=== PATIENT | female | born 1980 | race Caucasian/White ===

== ENCOUNTER → 2017-06-26 | Outpatient (CLI) | payer OTHER ==
[2017-06-26 19:08] LABS: ALT 33 U/L (9-52); AST 22 U/L (14-36); Alkaline Phosphatase 74 U/L (38-126); Amylase 41 U/L (30-110); Anion Gap 12 mmol/L; Blood Urea Nitrogen 10 mg/dL (7-17); Calcium 9.6 mg/dL (8.4-10.2); Carbon Dioxide 20 mmol/L (22-30); Chloride 108 mmol/L (98-107); Glucose 101 mg/dL (74-99); Non-African American GFR(MDRD) >60 (>60 ml/min/1.73 sqM); Potassium 4.5 mmol/L (3.5-5.1); Sodium 140 mmol/L (137-145); Total Bilirubin 0.4 mg/dL (0.2-1.3); Total Protein 7.8 g/dL (6.3-8.2)
[2017-06-26 19:09] LABS: Basophils # (A) 0.1 k/uL (0-0.2); Basophils % (A) 1 %; CH 31.3; Eosinophils # (A) 0.1 k/uL (0-0.7); Eosinophils % (A) 2 %; HCT 47.1 % (34.0-46.0); HDW 2.14; HGB 15.2 gm/dL (11.4-16.0); Luc % (Auto) 3; Lymphocytes # (A) 2.1 k/uL (1.0-4.8); Lymphocytes % (A) 26 %; MCH 31.6 pg (25.0-35.0); MCHC 32.2 g/dL (31.0-37.0); MCV 98.2 fL (80.0-100.0); Mean Platelet Volume 8.2; Monocytes # (A) 0.5 k/uL (0-1.0); Monocytes % (A) 6 %; Neutrophils # (A) 5.1 k/uL (1.3-7.7); Neutrophils % (A) 63 %; RDW 12.5 % (11.5-15.5); WBC 8.1 k/uL (3.8-10.6); WBC (Perox) 8.44
== END | disposition home or self-care (01) ==
LOC: MMGSC 13:41
PROVIDERS: ATTEND Family Medicine
DX: N39.0 Urinary tract infection, site not specified (principal); R10.9 Unspecified abdominal pain; R19.4 Change in bowel habit
CPT/HCPCS: 36415; 80053; 82150; 83690; 84439; 84443; 85025; 87086

== ENCOUNTER 2017-12-10 10:39 | Day surgery (SDC) | payer MEDICAID, OTHER ==
[2017-12-09 09:34] VITALS: BMI 28.3
[~2017-12-10 10:39] MED LIST: LACTATED RINGERS 1,000 ML IV SCH
[2017-12-10 11:51] VITALS: TEMP 96.9
[2017-12-10] MEDS ORDERED: LIDOCAINE 1% 20 ML VIAL (10MG/ML) FOR IV START INTRADERMA ONE (11:51)
[2017-12-10] MEDS ORDERED: LIDOCAINE 1% INJ 10MG/ML (20 ML MDV) ONE (12:09)
[2017-12-10] MEDS ORDERED: PROPOFOL 10 MG/ML 20 ML VIAL IV ONE (12:09)
--- NOTE | 2017-12-10 12:27 | P.PCN ---
Date of Procedure: 12/10/17 Procedure(s) Performed: BRIEF HISTORY: Patient is a 36-year-old pleasant white female, scheduled for an elective colonoscopy as a part of evaluation of left lower quadrant abdominal pain and change in bowel habits with alternating diarrhea and constipation of several months duration. PROCEDURE PERFORMED: Colonoscopy. PREOPERATIVE DIAGNOSIS: Left lower quadrant abdominal pain and change in bowel habits. IV sedation per Anesthesia. PROCEDURE: After informed consent was obtained, the patient, was brought into the endoscopy unit. IV sedation was administered by Anesthesia under continuous monitoring. Digital rectal examination was normal. Initially the Olympus CF- 160 flexible video colonoscope was then inserted in the rectum, gradually advanced into the cecum without any difficulty. Careful examination was performed as the scope was gradually being withdrawn. Ileocecal valve and the appendiceal orifice were visualized and appeared normal. Prep was excellent. Mucosa of the cecum, ascending colon, transverse colon, descending colon, sigmoid colon, and rectum appeared normal. Retroflexion was performed in the rectum and no lesions were seen. The patient tolerated the procedure well. IMPRESSION: Normal-appearing colon from rectum to cecum with no evidence of colitis or colorectal neoplasia. RECOMMENDATIONS: Findings of this examination were discussed with the patient as well as a family. She was advised to be on a high-fiber diet, take fiber supplements and use antispasmodics as needed.
[2017-12-10 12:31] VITALS: BP 112/68
[2017-12-10 12:49] VITALS: PULSE 69; RESP 18
== END 2017-12-10 13:06 | disposition home or self-care (01) ==
LOC: ORWHC2ENDO 10:39
PROVIDERS: ATTEND Internal Medicine Gastroenterology
DX: R19.4 Change in bowel habit (principal); R10.32 Left lower quadrant pain; F17.210 Nicotine dependence, cigarettes, uncomplicated
CPT/HCPCS: 81025; 45378; J2001; J2704

== ENCOUNTER → 2025-02-01 | Outpatient (CLI) | payer OTHER ==
[2025-02-01 14:47] LABS: HCT 45.9 % (37.2-46.3); MCH 30.9 pg (27.0-32.0); MCHC 32.7 g/dL (32.0-37.0); MCV 94.4 FL (80.0-97.0); Mean Platelet Volume 10.3 FL (9.5-12.2); NRBC Per 100 WBC 0 X 10*3/uL (0.00-0.01); Platelet Count 381 X 10*3/uL (140-440); RBC 4.86 X 10*6/uL (4.10-5.20); RDW 12.2 % (11.5-14.5); WBC 7.74 X 10*3/uL (4.50-10.00)
[2025-02-01 15:20] LABS: Blood Urea Nitrogen 10.4 mg/dL (9.0-27.0); Carbon Dioxide 24.3 mmol/L (21.6-31.8); Chloride 103 mmol/L (96-109); Potassium 4.4 mmol/L (3.5-5.5); Sodium 139 mmol/L (135-145)
== END | disposition home or self-care (01) ==
LOC: LABPAT 10:44
PROVIDERS: ATTEND Internal Medicine Clinical Cardiac Electrophysiology
DX: Z01.812 Encounter for preprocedural laboratory examination (principal); I47.10 Supraventricular tachycardia, unspecified
CPT/HCPCS: 80051; 82565; 84520; 85027

== ENCOUNTER 2025-02-07 12:11 | Day surgery (SDC) | payer BC, OTHER ==
[2025-02-03 10:13] VITALS: BMI 30.1
[2025-02-07] MEDS: IV FLUID CONTINUATION 1,000 ML IV ONE (13:00)
[2025-02-07 13:24] LABS: African American GFR (CKD) >90 (>60 ml/min/1.73 sqM); Anion Gap 11 mmol/L; Blood Urea Nitrogen 12 mg/dL (7-17); Calcium 9.7 mg/dL (8.4-10.2); Carbon Dioxide 23 mmol/L (22-30); Chloride 105 mmol/L (98-107); Glucose 98 mg/dL (74-99); Non-African American GFR(CKD) >90 (>60 ml/min/1.73 sqM); Potassium 4.2 mmol/L (3.5-5.1); Sodium 139 mmol/L (137-145)
[2025-02-07] MEDS ORDERED: ISOPROTERENOL 250 MCG/1.25 ML SYR IV ONE (14:57)
[2025-02-07] MEDS ORDERED: fentaNYL (PF) 50 MCG/ML 2 ML AMP ONE (14:57)
[2025-02-07] MEDS ORDERED: MIDAZOLAM 2 MG/2 ML VIAL ONE (14:57)
[2025-02-07] MEDS ORDERED: PROPOFOL 10 MG/ML 20 ML VIAL IV ONE (14:57)
[2025-02-07] MEDS: LIDOCAINE 1% INJ 10MG/ML (20 ML MDV) SQ ONE (15:46)
--- NOTE | 2025-02-07 16:32 | P.EPPROC ---
- EP Procedure Note Electrophysiology Procedure Note: This is Dr. Douglas dictating an H/P on this patient The patient was interviewed and examined IMPRESSION / ASSESSMENT: Recurrent palpitations Documented SVT 200 beats minute Prolonged FL interval at baseline PLAN: Diagnostic EP study and possible SVT ablation HPI Patient has recurrent SVT greater than 200 bpm No recent syncope but she continues to have palpitations last week ROS: No fever chills or rigors, no cough, phlegm or expectoration, no nausea, vomiting or diarrhea, no hematuria, dysuria, no musculoskeletal complaints, no strokes or seizures, no skin lesions. EXAMINATION: 136/82 mmHg pulse rate in the 80s afebrile Breath sounds are clear no rhonchi no crackles Heart sounds S1-S2 normal no murmur gallop or rub Extremities warm no edema REVIEW OF LABS, ECG & MEDICAL DATA Sodium 139, potassium 4.2 BUN 12 and creatinine 0.67 TSH normal
[2025-02-07] MEDS: ROPIVACAINE 5 MG/ML 30 ML VIAL MISCELLANE ONE (17:37)
--- NOTE | 2025-02-07 17:47 | P.HPCAR ---
History of Present Illness This is Dr. Douglas dictating an H/P on this patient The patient was interviewed and examined IMPRESSION / ASSESSMENT: Recurrent palpitations Documented SVT 200 beats minute Prolonged NM interval at baseline PLAN: Diagnostic EP study and possible SVT ablation HPI Patient has recurrent SVT greater than 200 bpm No recent syncope but she continues to have palpitations last week ROS: No fever chills or rigors, no cough, phlegm or expectoration, no nausea, vomiting or diarrhea, no hematuria, dysuria, no musculoskeletal complaints, no strokes or seizures, no skin lesions. EXAMINATION: 136/82 mmHg pulse rate in the 80s afebrile Breath sounds are clear no rhonchi no crackles Heart sounds S1-S2 normal no murmur gallop or rub Extremities warm no edema REVIEW OF LABS, ECG & MEDICAL DATA Sodium 139, potassium 4.2 BUN 12 and creatinine 0.67 TSH normal Physical Exam Vitals: Vital Signs Temp Pulse Resp BP Pulse Ox 02/07/25 12:59 97.7 F 81 18 136/82 98 Intake and Output 02/07/25 02/07/25 02/07/25 06:59 14:59 22:59 Intake Total 520 Balance 520 Intake: IV 520 Other: Weight 79.8 kg Past Medical History Past Medical History: Hypertension Additional Past Medical History / Comment(s): SVT, IBS, PCOS History of Any Multi-Drug Resistant Organisms: None Reported Past Surgical History: Section, Cholecystectomy Additional Past Surgical History / Comment(s): [place] teeth Past Anesthesia/Blood Transfusion Reactions: No Reported Reaction Smoking Status: Current every day smoker - Past Family History Mother Family Medical History: No Reported History Physical Examination Vital Signs Temp Pulse Resp BP Pulse Ox 02/07/25 12:59 97.7 F 81 18 136/82 98 Intake and Output 02/07/25 02/07/25 02/07/25 06:59 14:59 22:59 Intake Total 520 Balance 520 Intake: IV 520 Other: Weight 79.8 kg Results 02/07/25 12:45 Comprehensive Metabolic Panel 02/07/25 Range/Units 12:45 Sodium 139 (137-145) mmol/L Potassium 4.2 (3.5-5.1) mmol/L Chloride 105 (98-107) mmol/L Carbon Dioxide 23 (22-30) mmol/L BUN 12 (7-17) mg/dL Creatinine 0.67 (0.52-1.04) mg/dL Glucose 98 (74-99) mg/dL Calcium 9.7 (8.4-10.2) mg/dL Current Medications Generic Name Dose Route Start Last Admin Trade Name Freq PRN Reason Stop Dose Admin Sodium Chloride 1,000 mls @ 20 mls/hr 02/07/25 06:04 Saline 0.9% IV 03/09/25 06:03 .Q24H EZIO Lactated Ringer's 1,000 mls @ 20 mls/hr 02/07/25 06:04 Lactated Ringers IV 03/09/25 06:03 .Q24H EZIO Intake and Output 02/07/25 02/07/25 02/07/25 06:59 14:59 22:59 Intake Total 520 Balance 520 Intake: IV 520 Other: Weight 79.8 kg Patient Weight 02/08/25 06:59 Weight 79.8 kg 02/07/25 12:45
--- NOTE | 2025-02-07 17:53 | P.EPPROC ---
- EP Procedure Note Electrophysiology Procedure Note: Diagnosis Recurrent SVT greater than 200 bpm, symptomatic No documentation so far Final diagnosis Prolonged SD interval at baseline of 250 ms Antegrade slow pathway conduction prolonged. Retrograde conduction with VA block at greater than 390 ms on Isopril: Greater than 550 ms of Isopril No inducible AV melia reentry either typical or atypical No evidence of accessory pathway conduction No inducible atrial tachycardia or atrial fibrillation Plan Recommend implantation of loop monitor since patient has had 2-3 episodes of palpitations greater than 200 bpm. However this happens with an interval of greater than several months between episodes Details Patient was brought to the EP lab in a fasting state. Written informed consent was obtained prior to the procedure. Light sedation was provided but the patient is fairly awake through the procedure Diagnostic catheters were positioned in the right heart including high right atrium His bundle area right ventricle and coronary sinus Sinus cycle length 751 ms, SD interval greater than 250 ms at baseline in the wakeful state, QRS 114 ms incomplete right bundle branch block pattern and QT interval 388 ms AH 168 ms, HV interval 40 ms Sinus node recovery times were normal at 834, 871 and 920 4 ms AV node Wenckebach block 300 ms Slow pathway 350 ms antegradely No delta waves VA Wenckebach block greater than 550 ms at baseline Atrial extrastimulation performed for the high right atrium and from the coronary sinus as well as from the right ventricle No arrhythmias induced High-dose Isopril started. EP study performed during high-dose Isopril as well as during the washout. After double extrastimuli from the high right atrium and the coronary sinus performed Burst stimulation was performed Triple extrastimuli from the coronary sinus, no SVT induced Per stimulation of the right ventricle as well as extrastimulation performed No SVT induced During Isuprel washout burst stimulation was once again performed. No inducible SVT All sheaths were then removed all catheters were removed Closure device was applied and hemostasis showed Preparation made for implantation of an [place] loop monitor/ILR
--- NOTE | 2025-02-07 17:54 | P.EPPROC ---
- EP Procedure Note Electrophysiology Procedure Note: Loop monitor implant Primary physicians: Reginald Legal Writing Professor: Dr. Douglsa Indication: Dr. Guzman Patient was brought to the EP lab in a fasting state. Written informed consent was obtained prior to the procedure. The left pectoral area was prepped and draped per protocol. Intravenous antibiotic was administered preoperatively. A subcutaneous Loop monitor was implanted successfully and the wound was closed per protocol. The device was programmed to detect significant ghulam- arrhythmic and tachy-arrhythmic events, per protocol. Device and programming details: SVT detection
--- NOTE | 2025-02-07 17:56 | P.PRLE ---
RE: Chasidy Muñiz Dear Anay Chase underwent a diagnostic EP study for intermittent episodes of SVT greater than 200 bpm. However at EP study 1. A prolonged VA interval and a prolonged HV interval was noted 2. No inducible SVT despite a detailed study from multiple sites, both on and off high-dose Isopril and in the wakeful state There was no evidence for AV melia reentry or AV reentry However we were not rate in able to induce any atrial tachycardia or atrial fibrillation either It is quite likely the patient has a rapid atrial tachycardia/A-fib that was simply not inducible at this EP study despite keeping her completely awake for the procedure Therefore after speaking to her as well as her , a loop monitor was implanted to detect her arrhythmia and guide further management Thank you for entrusting me with the care of the patient Warm regards Sincerely Sergey Douglas
[2025-02-07] MEDS: ACETAMINOPHEN IV (For NPO) 1,000 MG in EMPTY BAG 1 BAG IVPB ONE (18:18)
[2025-02-07] MEDS ORDERED: ACETAMINOPHEN TAB 325 MG TAB PO PRN (18:21)
[2025-02-07] MEDS: SODIUM CHLORIDE 0.9% 1,000 ML IV SCH (19:56)
[2025-02-07] MEDS: LACTATED RINGERS 1,000 ML IV SCH (19:56)
[2025-02-07] MEDS: PATIENT'S OWN (Progesterone, Micronized [Progesterone] 100 MG Capsule) PO SCH (21:01)
[2025-02-08] MEDS: ACETAMINOPHEN TAB 325 MG TAB PO PRN (04:08)
[2025-02-08 10:10] VITALS: BP 118/69; PULSE 71; RESP 17; TEMP 98.2
--- NOTE | 2025-02-08 14:24 | P.DS ---
Providers Expected date of discharge: 02/08/25 Attending physician: Sergey Douglas Primary care physician: [facility] Course: This is a 44-year-old female brought into the hospital under the care of Dr. Douglas for recurrent palpitations and documented SVT of 200 bpm, prolonged PA interval at baseline. Patient underwent diagnostic EP study. Patient also had a loop recorder placed. Patient is seen today in the room. She states she is feeling well today. No chest pain, no palpitations. No lightheadedness or dizziness. Physical examination: Breath sounds are clear no rhonchi no crackles Heart sounds S1-S2 normal no murmur gallop or rub Extremities warm no edema Assessment: Recurrent palpitations Documented SVT 200 beats minute Prolonged PA interval at baseline Plan: Discharge patient home today in stable condition Patient will follow-up in the device clinic in 1 week and follow-up with Dr. Douglas in 4 months. Nurse practitioner note has been reviewed, I agree with documented findings and plan of care. Patient was seen and examined. Plan - Discharge Summary Discharge Rx Participant: No New Discharge Prescriptions: Continue estradioL [estradioL (Once Weekly) 0.05 mg Patch] 1 patch TOPICAL DIRECTED Progesterone, Micronized [Progesterone] 100 mg PO HS Ibuprofen [Advil] 200 mg PO Q8HR PRN PRN Reason: Pain Metoprolol Tartrate [Lopressor] 25 mg PO DIRECTED PRN PRN Reason: Heart Rate - High Discharge Medication List Ibuprofen [Advil] 200 mg PO Q8HR PRN 02/03/25 [History] Metoprolol Tartrate [Lopressor] 25 mg PO DIRECTED PRN 02/03/25 [History] Progesterone, Micronized [Progesterone] 100 mg PO HS 02/03/25 [History] estradioL [estradioL (Once Weekly) 0.05 mg Patch] 1 patch TOPICAL DIRECTED 02/03/25 [History] Follow up Appointment(s)/Referral(s): Sergey Douglas MD [STAFF PHYSICIAN] - 1 Week (Device clinic in one week Dr. Douglas in 4 months) Patient Instructions/Handouts: Cardiac Loop Recorder Insertion (DC), Electrophysiology Study (DC) Discharge Disposition: HOME SELF-CARE
== END 2025-02-08 09:58 | disposition home or self-care (01) ==
LOC: CATHEP 12:11 → 3SCARD 17:44 → CATHEP 02-08 09:58
PROVIDERS: ATTEND Internal Medicine Clinical Cardiac Electrophysiology
DX: I47.19 Other supraventricular tachycardia (principal); I49.3 Ventricular premature depolarization; K58.9 Irritable bowel syndrome, unspecified; E28.2 Polycystic ovarian syndrome; F41.9 Anxiety disorder, unspecified; F17.210 Nicotine dependence, cigarettes, uncomplicated; Z82.49 Family history of ischemic heart disease and other diseases of the circulatory system; Z79.899 Other long term (current) drug therapy
CPT/HCPCS: 93623; 93621; 93620; 33285; 86900; 86901; 80048; 84443; 86850; 81025; C1894; C1769; C1760; C1730 ×3; C1764; J2250; J2003; J3010; J2795; J0131; J2704